=== PATIENT | female | born 1980 | race African-American/Black ===

== ENCOUNTER 2017-04-25 09:35 | Emergency (ER) | payer OTHER ==
[~2017-04-25] VITALS: Ht 165.1 cm; Wt 99.4 kg
[~2017-04-25 09:35] MED LIST: ATENOLOL25 M1 PO; CELLCEPT500 MG PO; DEPO-PROVER150 MG/ML IM; DEPO-PROVERA; IRON325 M1 PO; LISINOPRIL40 MG PO; MOTRIN600 MG PO; NEXIUM40 MG PO; NORCO 5/3251 TABLET PO; PLAQUENIL200 MG PO; PREDNISONE10 MG PO; REPLESTA50000 UNIT PO; VICODIN,LORT1 TABLET PO; VITAMIN D50000 UNI1 PO; ZESTRIL,PRINIVI10 MG PO
[2017-04-25 10:13] LABS: EOSINOPHIL COUNT 0.1 K/uL (0-0.3); HEMATOCRIT 36.3 % (36.0-46.0); IMMATURE GRANULOCYTE (%) 0.2 % (0.0-0.7); INSTRUMENT ABS NEUTROPHIL CT 2.6 K/uL; LYMPHOCYTE COUNT 1.5 K/uL (1.0-2.8); MCH 24.1 PG (29.0-34.0); MCHC 30.9 G/DL (30.0-36.0); MCV 78.2 FL (83-99); MEAN PLAT.VOLUME 11.4 uM^3 (9.5-12.4); MONOCYTE (%) 6.3 % (3-12); MONOCYTE COUNT 0.3 K/uL (0-0.8); NEUTROPHIL (%) 57.7 % (45-76); NEUTROPHIL COUNT 2.6 K/uL (1.8-6.4); PLATELET COUNT 220 K/uL (156-360); RBC DIS.WIDTH-CV 13.6 % (11.8-14.6); RBC DIS.WIDTH-SD 38.6 % (39-53); RED BLOOD COUNT 4.64 M/uL (3.80-5.20); WHITE BLOOD COUNT 4.5 K/uL (4.1-10.2)
[2017-04-25 10:24] LABS: CHLORIDE 107 mEq/L (99-109); POTASSIUM 4.2 mEq/L (3.7-5.4); SODIUM 138 mEq/L (136-147)
[2017-04-25 10:25] LABS: GLUCOSE 99 mg/dL (70-99)
[2017-04-25 10:27] LABS: ANION GAP 10 MEQ/L (2-14)
[2017-04-25 10:29] LABS: GFR ESTIMATE (CALCULATED) > 59 mL/min/
[2017-04-25 10:30] LABS: UREA NITROGEN (BUN) 8 mg/dL (9-23)
[2017-04-25 10:34] LABS: TROP-I INTERPRETATION NEGATIVE; TROPONIN-I < 0.01 ng/mL (0.0-0.30)
[2017-04-25 12:52] LABS: TROP-I INTERPRETATION NEGATIVE; TROPONIN-I < 0.01 ng/mL (0.0-0.30)
[2017-04-25] MEDS ORDERED: TYLENOL WITH C1 EACH PO (13:46)
[2017-04-25 14:15] VITALS: BP 122/90
== END 2017-04-25 14:20 | disposition home or self-care (01) ==
LOC: EME → EDBD 09:35 → EME 09:35
PROVIDERS: Emergency Medicine
DX: R07.89 Other chest pain (principal); M79.1 Myalgia; M32.9 Systemic lupus erythematosus, unspecified; I10 Essential (primary) hypertension; K21.9 Gastro-esophageal reflux disease without esophagitis; Z87.891 Personal history of nicotine dependence; Z86.74 Personal history of sudden cardiac arrest
CPT/HCPCS: 71010; 80048; 84484; 85025; 85379; 93005; 99281; 99285; J1885; J2270; J7030